=== PATIENT | female | born 1960 | race Caucasian/White ===

== ENCOUNTER 2021-03-21 15:47 | Inpatient (IN) | payer OTHER ==
[2021-03-21 16:06] VITALS: BMI 32.4
[2021-03-21] MEDS ORDERED: ACETAMINOPHEN 1000 MG/100 ML BAG IVPB ONE (16:49)
[2021-03-21] MEDS ORDERED: ACETAMINOPHEN INJECTION 100 ML IVPB ONE (17:15)
[2021-03-21] MEDS ORDERED: LACTATED RINGERS SOLUTION 1000 ML INFUS.BAG IV ONE (17:18)
[2021-03-21] MEDS ORDERED: AZITHROMYCIN IVPB 500 MG in DEXTROSE 5%-WATER - 250 ML IVPB ONE (17:18)
[2021-03-21] MEDS ORDERED: CEFTRIAXONE 1 GM in DEXTROSE 5%-WATER - 100 ML IVPB ONE (17:18)
[2021-03-21] MEDS ORDERED: AZITHROMYCIN IVPB 500 MG/250 ML BAG IVPB ONE (17:30)
[2021-03-21] MEDS ORDERED: CEFTRIAXONE 1 GM/50 ML BAG ONE (17:30)
[2021-03-21 17:41] LABS: VENOUS BASE EXCESS -0.4 mmol/L (-2-2); VENOUS O2 SATURATION 46.1 % (70-80); VENOUS PCO2 42.1 mmHg (38-52); VENOUS PH 7.386 (7.310-7.410)
[2021-03-21 17:48] LABS: BASO % 0.8 % (0-2.0); HEMATOCRIT 40.7 % (32.4-45.2); HEMOGLOBIN 14.2 GM/dL (10.7-15.3); LYMPH % 8.8 % (8-40); MCH 32.6 pg (25.7-33.7); MEAN CELL VOLUME 93.3 fl (80-96); MONO % 7.7 % (3.8-10.2); NEUT % 82.7 % (42.8-82.8); PLATELET COUNT 382 K/MM3 (134-434); RBC 4.36 M/mm3 (3.60-5.2); RDW 12.2 % (11.6-15.6); WHITE BLOOD COUNT 7.3 K/mm3 (4.0-10.0)
[2021-03-21 17:52] LABS: EPI CELLS >36 /uL (0-25.1); HYALINE CASTS 2 /uL (0-3.1); URINE APPEARANCE CLEAR; URINE BACTERIA 1866 /uL (0-1359); URINE BILIRUBIN 1+ (NEGATIVE); URINE COLOR DK YELLOW; URINE GLUCOSE (UA) NEGATIVE (NEGATIVE); URINE KETONE TRACE (NEGATIVE); URINE LEUK ESTERASE NEGATIVE (NEGATIVE); URINE NITRITE NEGATIVE (NEGATIVE); URINE PROTEIN 3+ (NEGATIVE); URINE WBC 6 /uL (0-25.8)
[2021-03-21 17:55] LABS: INR 1.14 (0.83-1.09)
[2021-03-21 17:58] LABS: ACTIVATED PTT 33.1 SECONDS (25.2-36.5)
[2021-03-21 18:01] LABS: CHLORIDE 103 mmol/L (98-107); SODIUM 137 mmol/L (136-145)
[2021-03-21 18:03] LABS: CALCIUM 8.4 mg/dL (8.5-10.1)
[2021-03-21 18:04] LABS: ALBUMIN 3.2 g/dl (3.4-5.0); ANION GAP 8 MMOL/L (8-16); BLOOD UREA NITROGEN 14.6 mg/dL (7-18); CO2 26 mmol/L (21-32); GLUCOSE,RANDOM 100 mg/dL (74-106); MAGNESIUM 2.3 mg/dL (1.8-2.4)
[2021-03-21 18:07] LABS: CREATININE 0.7 mg/dL (0.55-1.3); SGOT/AST 129 U/L (15-37); SGPT/ALT 104 U/L (13-61)
[2021-03-21 18:08] LABS: BILIRUBIN,TOTAL 0.7 mg/dL (0.2-1)
[2021-03-21 18:09] LABS: TOT PROT 7.6 g/dl (6.4-8.2)
[2021-03-21 18:10] LABS: ALK PHOS 142 U/L (45-117)
[2021-03-21 18:12] LABS: N-TERMINAL BNP 38.6 pg/ml (5-125)
[2021-03-21] MEDS ORDERED: DEXAMETHASONE SOD PHOSPHATE 4 MG/1 ML VIAL IVPUSH ONE (19:40)
[2021-03-21] MEDS ORDERED: DEXAMETHASONE SOD PHOSPHATE 10 MG/1 ML VIAL ONE (19:51)
[2021-03-21 20:39] LABS: LDH 647 U/L (84-246)
[2021-03-21 20:43] LABS: ERYTHROCYTE SEDIMENTATION RATE 67 mm/hr (0-30)
[2021-03-21] MEDS: ASCORBIC ACID 500 MG TABLET (FP) PO SCH (22:47)
[2021-03-21] MEDS: ZINC SULFATE 220 MG CAPSULE (FP) PO SCH (22:47)
[2021-03-22 06:38] LABS: BASO % 0.5 % (0-2.0); HEMOGLOBIN 13.9 GM/dL (10.7-15.3); LYMPH % 7.6 % (8-40); MCHC 35.5 g/dl (32.0-36.0); MEAN CELL VOLUME 93.1 fl (80-96); MEAN PLT VOLUME 8.9 fl (7.5-11.1); MONO % 4.5 % (3.8-10.2); NEUT % 87.4 % (42.8-82.8); PLATELET COUNT 369 K/MM3 (134-434); RBC 4.19 M/mm3 (3.60-5.2); RDW 12.4 % (11.6-15.6); WHITE BLOOD COUNT 5.5 K/mm3 (4.0-10.0)
[2021-03-22 06:57] LABS: ALBUMIN 2.6 g/dl (3.4-5.0); MAGNESIUM 2.3 mg/dL (1.8-2.4)
[2021-03-22 06:58] LABS: CALCIUM 8.4 mg/dL (8.5-10.1)
[2021-03-22 06:59] LABS: BLOOD UREA NITROGEN 11.8 mg/dL (7-18)
[2021-03-22 07:01] LABS: CREATININE 0.7 mg/dL (0.55-1.3)
[2021-03-22 07:02] LABS: PHOSPHOROUS 4.4 mg/dL (2.5-4.9); TOT PROT 6.6 g/dl (6.4-8.2)
[2021-03-22 07:03] LABS: BILIRUBIN,TOTAL 0.5 mg/dL (0.2-1)
[2021-03-22] MEDS: DEXAMETHASONE SOD PHOSPHATE 4 MG/1 ML VIAL IVPUSH SCH (09:29)
[2021-03-22] MEDS: ZINC SULFATE 220 MG CAPSULE (FP) PO SCH ×2 (09:29→22:08)
[2021-03-22] MEDS: FAMOTIDINE 20 MG TABLET PO SCH (09:29)
[2021-03-22] MEDS: CHOLECALCIFEROL (VIT D3) 1,000 UNIT (25 MCG) TABLET PO SCH (09:29)
[2021-03-22] MEDS: ASCORBIC ACID 500 MG TABLET (FP) PO SCH (09:29)
[2021-03-22] MEDS ORDERED: ENOXAPARIN NA (PORCINE) 40 MG/0.4 ML DISP.SYRIN SQ SCH (10:00)
[2021-03-22] MEDS ORDERED: FLU VACCINE (FLULAVAL) PF 60 MCG/0.5 ML SYRINGE 2020-2021 IM ONE (10:00)
[2021-03-22 10:42] LABS: ANISOCYTOSIS 1+; MACROCYTOSIS 0; PLATELET ESTIMATE NORMAL
[2021-03-22] MEDS ORDERED: DEXTROSE 5%-WATER 100 ML IVPB ONE ×2 (10:44→16:56)
[2021-03-22] MEDS ORDERED: CEFEPIME HCL 1 GM VIAL (RESTRICTED TO ID) ONE ×2 (10:44→16:56)
[2021-03-22] MEDS: CEFEPIME 1 GM in DEXTROSE 5%-WATER 1 GM/100 ML BAG IVPB SCH ×2 (10:47→18:25)
[2021-03-22] MEDS ORDERED: ENOXAPARIN NA (PORCINE) 80 MG/0.8 ML DISP.SYRIN SQ SCH (14:00)
[2021-03-22] MEDS ORDERED: REMDESIVIR 200 MG in SODIUM CHLORIDE 250 ML IVPB ONE (15:00)
[2021-03-22] MEDS: ENOXAPARIN NA (PORCINE) 80 MG/0.8 ML DISP.SYRIN SQ SCH (22:07)
[2021-03-23] MEDS ORDERED: CEFEPIME HCL 1 GM VIAL (RESTRICTED TO ID) ONE ×3 (00:05→16:40)
[2021-03-23] MEDS ORDERED: DEXTROSE 5%-WATER 100 ML IVPB ONE ×3 (00:06→16:41)
[2021-03-23] MEDS: CEFEPIME 1 GM in DEXTROSE 5%-WATER 1 GM/100 ML BAG IVPB SCH ×3 (01:03→17:08)
[2021-03-23 04:50] LABS: SARS-CoV-2 NAA Detected (Not Detected)
[2021-03-23 07:08] LABS: BASO % 0.3 % (0-2.0); HEMATOCRIT 38.2 % (32.4-45.2); HEMOGLOBIN 13.1 GM/dL (10.7-15.3); LYMPH % 4.7 % (8-40); MCH 31.9 pg (25.7-33.7); MCHC 34.3 g/dl (32.0-36.0); MEAN CELL VOLUME 93.1 fl (80-96); MEAN PLT VOLUME 8.7 fl (7.5-11.1); MONO % 7.3 % (3.8-10.2); NEUT % 87.7 % (42.8-82.8); PLATELET COUNT 447 K/MM3 (134-434); RBC 4.11 M/mm3 (3.60-5.2); RDW 12.2 % (11.6-15.6); WHITE BLOOD COUNT 12.6 K/mm3 (4.0-10.0)
[2021-03-23 07:30] LABS: ALBUMIN 2.4 g/dl (3.4-5.0); BLOOD UREA NITROGEN 17.3 mg/dL (7-18)
[2021-03-23 07:31] LABS: MAGNESIUM 2.3 mg/dL (1.8-2.4)
[2021-03-23 07:33] LABS: CREATININE 0.6 mg/dL (0.55-1.3)
[2021-03-23 07:34] LABS: BILIRUBIN,TOTAL 0.5 mg/dL (0.2-1); TOT PROT 6.2 g/dl (6.4-8.2)
[2021-03-23] MEDS ORDERED: TOCILIZUMAB (ACTEMRA) 200 MG/10 ML VIAL IVPB ONE (08:33)
[2021-03-23] MEDS: CHOLECALCIFEROL (VIT D3) 1,000 UNIT (25 MCG) TABLET PO SCH (09:09)
[2021-03-23] MEDS: DEXAMETHASONE SOD PHOSPHATE 4 MG/1 ML VIAL IVPUSH SCH (09:09)
[2021-03-23] MEDS: ASCORBIC ACID 500 MG TABLET (FP) PO SCH (09:10)
[2021-03-23] MEDS: FAMOTIDINE 20 MG TABLET PO SCH (09:10)
[2021-03-23] MEDS: ZINC SULFATE 220 MG CAPSULE (FP) PO SCH ×2 (09:10→21:05)
[2021-03-23] MEDS: ENOXAPARIN NA (PORCINE) 80 MG/0.8 ML DISP.SYRIN SQ SCH ×2 (09:10→21:05)
[2021-03-23] MEDS: amLODIPine BESYLATE 5 MG TABLET (FP) PO SCH (09:10)
[2021-03-23] MEDS ORDERED: TOCILIZUMAB 700 MG in SODIUM CHLORIDE 65 ML IVPB ONE (11:00)
[2021-03-23] MEDS: REMDESIVIR 100 MG in SODIUM CHLORIDE 250 ML IVPB SCH (15:04)
[2021-03-23] MEDS: ALBUTEROL SO4 HFA INHALER IH SCH ×2 (15:04→20:37)
[2021-03-23] MEDS: BUDESONIDE/FORMETEROL FUMARATE 160/4.5 mcg INHALER IH SCH (21:06)
[2021-03-24] MEDS ORDERED: CEFEPIME HCL 1 GM VIAL (RESTRICTED TO ID) ONE ×3 (01:09→16:49)
[2021-03-24] MEDS ORDERED: DEXTROSE 5%-WATER 100 ML IVPB ONE ×3 (01:09→16:49)
[2021-03-24] MEDS: CEFEPIME 1 GM in DEXTROSE 5%-WATER 1 GM/100 ML BAG IVPB SCH ×3 (01:17→17:01)
[2021-03-24] MEDS ORDERED: guaiFENesin 200 MG/10 ML 10 ML UNIT-DOSE CUPS PO PRN (02:10)
[2021-03-24] MEDS: ALBUTEROL SO4 HFA INHALER IH SCH ×4 (08:14→20:30)
[2021-03-24 08:37] LABS: BASO % 0.3 % (0-2.0); HEMATOCRIT 37.5 % (32.4-45.2); LYMPH % 7.6 % (8-40); MCH 32.2 pg (25.7-33.7); MCHC 34.7 g/dl (32.0-36.0); MEAN CELL VOLUME 92.8 fl (80-96); MEAN PLT VOLUME 8.2 fl (7.5-11.1); MONO % 6.3 % (3.8-10.2); NEUT % 85.8 % (42.8-82.8); PLATELET COUNT 517 K/MM3 (134-434); RBC 4.04 M/mm3 (3.60-5.2); RDW 12.3 % (11.6-15.6); WHITE BLOOD COUNT 11.2 K/mm3 (4.0-10.0)
[2021-03-24 09:07] LABS: ALBUMIN 2.5 g/dl (3.4-5.0); BLOOD UREA NITROGEN 23.9 mg/dL (7-18); MAGNESIUM 2.4 mg/dL (1.8-2.4)
[2021-03-24 09:09] LABS: CREATININE 0.6 mg/dL (0.55-1.3)
[2021-03-24 09:11] LABS: BILIRUBIN,TOTAL 0.4 mg/dL (0.2-1); TOT PROT 6.1 g/dl (6.4-8.2)
[2021-03-24] MEDS: CHOLECALCIFEROL (VIT D3) 1,000 UNIT (25 MCG) TABLET PO SCH (09:14)
[2021-03-24] MEDS: amLODIPine BESYLATE 5 MG TABLET (FP) PO SCH (09:14)
[2021-03-24] MEDS: ENOXAPARIN NA (PORCINE) 80 MG/0.8 ML DISP.SYRIN SQ SCH ×2 (09:14→21:55)
[2021-03-24] MEDS: DEXAMETHASONE SOD PHOSPHATE 4 MG/1 ML VIAL IVPUSH SCH (09:14)
[2021-03-24] MEDS: ASCORBIC ACID 500 MG TABLET (FP) PO SCH (09:14)
[2021-03-24] MEDS: ZINC SULFATE 220 MG CAPSULE (FP) PO SCH ×2 (09:14→21:55)
[2021-03-24] MEDS: FAMOTIDINE 20 MG TABLET PO SCH (09:15)
[2021-03-24] MEDS: BUDESONIDE/FORMETEROL FUMARATE 160/4.5 mcg INHALER IH SCH ×2 (09:15→21:58)
[2021-03-24] MEDS ORDERED: ACETAMINOPHEN 1000 MG/100 ML BAG IVPB PRN (12:14)
[2021-03-24] MEDS: REMDESIVIR 100 MG in SODIUM CHLORIDE 250 ML IVPB SCH (14:52)
[2021-03-25 06:48] LABS: BASO % 0.2 % (0-2.0); EOS % 0.1 % (0-4.5); HEMATOCRIT 39.9 % (32.4-45.2); HEMOGLOBIN 13.9 GM/dL (10.7-15.3); MCH 32.7 pg (25.7-33.7); MCHC 34.9 g/dl (32.0-36.0); MEAN CELL VOLUME 93.7 fl (80-96); MEAN PLT VOLUME 8.5 fl (7.5-11.1); MONO % 5.8 % (3.8-10.2); NEUT % 86.9 % (42.8-82.8); PLATELET COUNT 541 K/MM3 (134-434); RBC 4.26 M/mm3 (3.60-5.2); RDW 12.2 % (11.6-15.6); WHITE BLOOD COUNT 10.5 K/mm3 (4.0-10.0)
[2021-03-25 07:32] LABS: BLOOD UREA NITROGEN 21.8 mg/dL (7-18)
[2021-03-25 07:37] LABS: CALCIUM 7.8 mg/dL (8.5-10.1)
[2021-03-25 07:38] LABS: ALBUMIN 2.6 g/dl (3.4-5.0); MAGNESIUM 2.4 mg/dL (1.8-2.4)
[2021-03-25 07:39] LABS: CREATININE 0.7 mg/dL (0.55-1.3)
[2021-03-25 07:40] LABS: BILIRUBIN,TOTAL 0.4 mg/dL (0.2-1)
[2021-03-25 07:41] LABS: TOT PROT 6.1 g/dl (6.4-8.2)
[2021-03-25] MEDS: ALBUTEROL SO4 HFA INHALER IH SCH ×4 (08:20→21:37)
[2021-03-25 08:56] LABS: ANISOCYTOSIS 0; MACROCYTOSIS 0; PLATELET ESTIMATE INCREASED
[2021-03-25] MEDS: ZINC SULFATE 220 MG CAPSULE (FP) PO SCH ×2 (09:29→21:38)
[2021-03-25] MEDS: FAMOTIDINE 20 MG TABLET PO SCH (09:29)
[2021-03-25] MEDS: ENOXAPARIN NA (PORCINE) 80 MG/0.8 ML DISP.SYRIN SQ SCH ×2 (09:29→21:38)
[2021-03-25] MEDS: amLODIPine BESYLATE 5 MG TABLET (FP) PO SCH (09:29)
[2021-03-25] MEDS: ASCORBIC ACID 500 MG TABLET (FP) PO SCH (09:29)
[2021-03-25] MEDS: CHOLECALCIFEROL (VIT D3) 1,000 UNIT (25 MCG) TABLET PO SCH (09:29)
[2021-03-25] MEDS: BUDESONIDE/FORMETEROL FUMARATE 160/4.5 mcg INHALER IH SCH ×2 (09:30→21:38)
[2021-03-25] MEDS: DEXAMETHASONE SOD PHOSPHATE 4 MG/1 ML VIAL IVPUSH SCH (09:30)
[2021-03-25] MEDS: REMDESIVIR 100 MG in SODIUM CHLORIDE 250 ML IVPB SCH (15:30)
[2021-03-25 16:12] LABS: HEP B CORE AB, TOT Negative (Negative)
[2021-03-26 06:58] LABS: ALBUMIN 2.4 g/dl (3.4-5.0); BLOOD UREA NITROGEN 18.6 mg/dL (7-18); MAGNESIUM 2.1 mg/dL (1.8-2.4)
[2021-03-26 07:01] LABS: CREATININE 0.6 mg/dL (0.55-1.3)
[2021-03-26 07:02] LABS: BASO % 0.4 % (0-2.0); BILIRUBIN,TOTAL 0.2 mg/dL (0.2-1); EOS % 0.3 % (0-4.5); HEMATOCRIT 39.8 % (32.4-45.2); HEMOGLOBIN 13.8 GM/dL (10.7-15.3); LYMPH % 7.7 % (8-40); MCH 32.4 pg (25.7-33.7); MCHC 34.6 g/dl (32.0-36.0); MEAN CELL VOLUME 93.7 fl (80-96); MEAN PLT VOLUME 8.7 fl (7.5-11.1); MONO % 5.4 % (3.8-10.2); NEUT % 86.2 % (42.8-82.8); PLATELET COUNT 550 K/MM3 (134-434); RBC 4.25 M/mm3 (3.60-5.2); RDW 12.2 % (11.6-15.6); TOT PROT 5.6 g/dl (6.4-8.2); WHITE BLOOD COUNT 11.5 K/mm3 (4.0-10.0)
[2021-03-26] MEDS: ZINC SULFATE 220 MG CAPSULE (FP) PO SCH ×2 (09:03→21:42)
[2021-03-26] MEDS: ASCORBIC ACID 500 MG TABLET (FP) PO SCH (09:03)
[2021-03-26] MEDS: amLODIPine BESYLATE 5 MG TABLET (FP) PO SCH (09:03)
[2021-03-26] MEDS: ENOXAPARIN NA (PORCINE) 80 MG/0.8 ML DISP.SYRIN SQ SCH ×2 (09:03→21:42)
[2021-03-26] MEDS: CHOLECALCIFEROL (VIT D3) 1,000 UNIT (25 MCG) TABLET PO SCH (09:03)
[2021-03-26] MEDS: FAMOTIDINE 20 MG TABLET PO SCH (09:03)
[2021-03-26] MEDS: DEXAMETHASONE SOD PHOSPHATE 4 MG/1 ML VIAL IVPUSH SCH (09:03)
[2021-03-26] MEDS: ALBUTEROL SO4 HFA INHALER IH SCH ×4 (09:04→21:42)
[2021-03-26] MEDS: BUDESONIDE/FORMETEROL FUMARATE 160/4.5 mcg INHALER IH SCH ×2 (09:04→21:42)
[2021-03-26] MEDS: REMDESIVIR 100 MG in SODIUM CHLORIDE 250 ML IVPB SCH (14:26)
[2021-03-26] MEDS ORDERED: ACETAMINOPHEN 500 MG TABLET (FP) PO PRN (21:17)
[2021-03-26] MEDS ORDERED: MAG HYDROX/AL HYDROX/SIMETH -MYLANTA- ORAL SUSPENSION PO ONE (22:09)
[2021-03-26] MEDS ORDERED: PT OWN MED DRAWER 7, Y5N ONE (22:17)
[2021-03-27 06:47] LABS: BASO % 0.4 % (0-2.0); EOS % 0.5 % (0-4.5); LYMPH % 9.4 % (8-40); MCH 32.4 pg (25.7-33.7); MCHC 35.1 g/dl (32.0-36.0); MEAN CELL VOLUME 92.4 fl (80-96); MEAN PLT VOLUME 8.3 fl (7.5-11.1); MONO % 6.2 % (3.8-10.2); NEUT % 83.5 % (42.8-82.8); PLATELET COUNT 603 K/MM3 (134-434); RBC 4.33 M/mm3 (3.60-5.2); RDW 12.2 % (11.6-15.6); WHITE BLOOD COUNT 12.1 K/mm3 (4.0-10.0)
[2021-03-27 07:36] LABS: BLOOD UREA NITROGEN 16.4 mg/dL (7-18)
[2021-03-27 07:37] LABS: ALBUMIN 2.6 g/dl (3.4-5.0); MAGNESIUM 2.3 mg/dL (1.8-2.4)
[2021-03-27 07:38] LABS: CREATININE 0.6 mg/dL (0.55-1.3)
[2021-03-27 07:40] LABS: BILIRUBIN,TOTAL 0.4 mg/dL (0.2-1); TOT PROT 5.9 g/dl (6.4-8.2)
[2021-03-27] MEDS: ALBUTEROL SO4 HFA INHALER IH SCH ×4 (08:56→21:50)
[2021-03-27] MEDS: ZINC SULFATE 220 MG CAPSULE (FP) PO SCH ×2 (09:55→21:50)
[2021-03-27] MEDS: ENOXAPARIN NA (PORCINE) 80 MG/0.8 ML DISP.SYRIN SQ SCH ×2 (09:55→21:50)
[2021-03-27] MEDS: ASCORBIC ACID 500 MG TABLET (FP) PO SCH (09:56)
[2021-03-27] MEDS: DEXAMETHASONE SOD PHOSPHATE 4 MG/1 ML VIAL IVPUSH SCH (09:56)
[2021-03-27] MEDS: BUDESONIDE/FORMETEROL FUMARATE 160/4.5 mcg INHALER IH SCH ×2 (09:56→21:50)
[2021-03-27] MEDS: CHOLECALCIFEROL (VIT D3) 1,000 UNIT (25 MCG) TABLET PO SCH (09:56)
[2021-03-27] MEDS: FAMOTIDINE 20 MG TABLET PO SCH (09:56)
[2021-03-27] MEDS: amLODIPine BESYLATE 5 MG TABLET (FP) PO SCH (09:56)
[2021-03-27] MEDS: MAG HYDROX/AL HYDROX/SIMETH 30 ML UNIT-DOSE CUP PO PRN (10:32)
[2021-03-27 11:48] LABS: ANISOCYTOSIS 0; MACROCYTOSIS 0; PLATELET ESTIMATE INCREASED
[2021-03-28 07:16] LABS: BASO % 0.6 % (0-2.0); EOS % 1.2 % (0-4.5); HEMATOCRIT 40.6 % (32.4-45.2); HEMOGLOBIN 13.9 GM/dL (10.7-15.3); LYMPH % 6.6 % (8-40); MCH 32.1 pg (25.7-33.7); MCHC 34.4 g/dl (32.0-36.0); MEAN CELL VOLUME 93.5 fl (80-96); MEAN PLT VOLUME 8.6 fl (7.5-11.1); MONO % 5.9 % (3.8-10.2); NEUT % 85.7 % (42.8-82.8); PLATELET COUNT 593 K/MM3 (134-434); RBC 4.34 M/mm3 (3.60-5.2); RDW 12.3 % (11.6-15.6)
[2021-03-28 07:39] LABS: CALCIUM 8.1 mg/dL (8.5-10.1)
[2021-03-28 07:40] LABS: ALBUMIN 2.8 g/dl (3.4-5.0); BLOOD UREA NITROGEN 23.2 mg/dL (7-18); MAGNESIUM 2.4 mg/dL (1.8-2.4)
[2021-03-28 07:43] LABS: CREATININE 0.7 mg/dL (0.55-1.3)
[2021-03-28 07:44] LABS: BILIRUBIN,TOTAL 0.4 mg/dL (0.2-1)
[2021-03-28] MEDS: ALBUTEROL SO4 HFA INHALER IH SCH ×4 (08:29→22:02)
[2021-03-28] MEDS: DEXAMETHASONE SOD PHOSPHATE 4 MG/1 ML VIAL IVPUSH SCH (09:29)
[2021-03-28] MEDS: ZINC SULFATE 220 MG CAPSULE (FP) PO SCH ×2 (09:29→22:03)
[2021-03-28] MEDS: FAMOTIDINE 20 MG TABLET PO SCH (09:29)
[2021-03-28] MEDS: ASCORBIC ACID 500 MG TABLET (FP) PO SCH (09:29)
[2021-03-28] MEDS: amLODIPine BESYLATE 5 MG TABLET (FP) PO SCH (09:29)
[2021-03-28] MEDS: CHOLECALCIFEROL (VIT D3) 1,000 UNIT (25 MCG) TABLET PO SCH (09:29)
[2021-03-28] MEDS: BUDESONIDE/FORMETEROL FUMARATE 160/4.5 mcg INHALER IH SCH ×2 (09:30→22:03)
[2021-03-28] MEDS: ENOXAPARIN NA (PORCINE) 80 MG/0.8 ML DISP.SYRIN SQ SCH ×2 (09:30→22:02)
[2021-03-29 06:05] LABS: BASO % 0.2 % (0-2.0); EOS % 1.8 % (0-4.5); HEMATOCRIT 41.1 % (32.4-45.2); HEMOGLOBIN 14.2 GM/dL (10.7-15.3); LYMPH % 6.3 % (8-40); MCH 32.2 pg (25.7-33.7); MCHC 34.5 g/dl (32.0-36.0); MEAN CELL VOLUME 93.3 fl (80-96); MEAN PLT VOLUME 8.5 fl (7.5-11.1); MONO % 7.2 % (3.8-10.2); NEUT % 84.5 % (42.8-82.8); PLATELET COUNT 544 K/MM3 (134-434); RDW 12.4 % (11.6-15.6); WHITE BLOOD COUNT 14.5 K/mm3 (4.0-10.0)
[2021-03-29 06:41] LABS: ALBUMIN 2.9 g/dl (3.4-5.0); CALCIUM 8.5 mg/dL (8.5-10.1)
[2021-03-29 06:42] LABS: BLOOD UREA NITROGEN 21.5 mg/dL (7-18); MAGNESIUM 2.3 mg/dL (1.8-2.4)
[2021-03-29 06:45] LABS: CREATININE 0.6 mg/dL (0.55-1.3)
[2021-03-29 06:46] LABS: BILIRUBIN,TOTAL 0.6 mg/dL (0.2-1); TOT PROT 6.2 g/dl (6.4-8.2)
[2021-03-29] MEDS: ALBUTEROL SO4 HFA INHALER IH SCH ×4 (08:26→20:14)
[2021-03-29 08:42] LABS: ANISOCYTOSIS 1+; MACROCYTOSIS 0; PLATELET ESTIMATE INCREASED
[2021-03-29] MEDS: ENOXAPARIN NA (PORCINE) 80 MG/0.8 ML DISP.SYRIN SQ SCH ×2 (09:50→21:05)
[2021-03-29] MEDS: ASCORBIC ACID 500 MG TABLET (FP) PO SCH (09:51)
[2021-03-29] MEDS: FAMOTIDINE 20 MG TABLET PO SCH (09:51)
[2021-03-29] MEDS: amLODIPine BESYLATE 5 MG TABLET (FP) PO SCH (09:51)
[2021-03-29] MEDS: ZINC SULFATE 220 MG CAPSULE (FP) PO SCH ×2 (09:51→21:05)
[2021-03-29] MEDS: DEXAMETHASONE SOD PHOSPHATE 4 MG/1 ML VIAL IVPUSH SCH (09:51)
[2021-03-29] MEDS: CHOLECALCIFEROL (VIT D3) 1,000 UNIT (25 MCG) TABLET PO SCH (09:51)
[2021-03-29] MEDS: BUDESONIDE/FORMETEROL FUMARATE 160/4.5 mcg INHALER IH SCH ×2 (09:52→21:05)
[2021-03-29] MEDS ORDERED: PT OWN MED DRAWER 7, Y5N ONE (10:10)
[2021-03-30 06:55] LABS: BASO % 0.1 % (0-2.0); EOS % 0.1 % (0-4.5); HEMATOCRIT 40.3 % (32.4-45.2); HEMOGLOBIN 13.8 GM/dL (10.7-15.3); MCH 32.1 pg (25.7-33.7); MCHC 34.2 g/dl (32.0-36.0); MEAN CELL VOLUME 93.8 fl (80-96); MEAN PLT VOLUME 8.6 fl (7.5-11.1); MONO % 7.2 % (3.8-10.2); NEUT % 83.6 % (42.8-82.8); PLATELET COUNT 547 K/MM3 (134-434); RDW 12.6 % (11.6-15.6); WHITE BLOOD COUNT 12.2 K/mm3 (4.0-10.0)
[2021-03-30 07:17] LABS: CHLORIDE 100 mmol/L (98-107); SODIUM 136 mmol/L (136-145)
[2021-03-30 07:19] LABS: BLOOD UREA NITROGEN 22.7 mg/dL (7-18); CALCIUM 8.5 mg/dL (8.5-10.1)
[2021-03-30 07:20] LABS: ANION GAP 6 MMOL/L (8-16); CO2 30 mmol/L (21-32)
[2021-03-30 07:22] LABS: CREATININE 0.5 mg/dL (0.55-1.3); MAGNESIUM 2.3 mg/dL (1.8-2.4)
[2021-03-30 07:23] LABS: GLUCOSE,RANDOM 106 mg/dL (74-106); SGOT/AST 14 U/L (15-37); SGPT/ALT 56 U/L (13-61)
[2021-03-30 07:24] LABS: LDH 251 U/L (84-246)
[2021-03-30 07:25] LABS: ALK PHOS 119 U/L (45-117)
[2021-03-30 07:27] LABS: BILIRUBIN,TOTAL 0.4 mg/dL (0.2-1)
[2021-03-30] MEDS: ALBUTEROL SO4 HFA INHALER IH SCH ×4 (07:36→21:44)
[2021-03-30] MEDS: amLODIPine BESYLATE 5 MG TABLET (FP) PO SCH (09:12)
[2021-03-30] MEDS: ENOXAPARIN NA (PORCINE) 80 MG/0.8 ML DISP.SYRIN SQ SCH ×2 (09:12→21:44)
[2021-03-30] MEDS: FAMOTIDINE 20 MG TABLET PO SCH (09:12)
[2021-03-30] MEDS: DEXAMETHASONE SOD PHOSPHATE 4 MG/1 ML VIAL IVPUSH SCH (09:12)
[2021-03-30] MEDS: CHOLECALCIFEROL (VIT D3) 1,000 UNIT (25 MCG) TABLET PO SCH (09:13)
[2021-03-30] MEDS: ASCORBIC ACID 500 MG TABLET (FP) PO SCH (09:13)
[2021-03-30] MEDS: ZINC SULFATE 220 MG CAPSULE (FP) PO SCH ×2 (09:13→21:44)
[2021-03-30] MEDS: BUDESONIDE/FORMETEROL FUMARATE 160/4.5 mcg INHALER IH SCH ×2 (09:13→21:44)
[2021-03-30] MEDS: MAG HYDROX/AL HYDROX/SIMETH 30 ML UNIT-DOSE CUP PO PRN (21:51)
[2021-03-31 06:30] LABS: BASO % 0.3 % (0-2.0); EOS % 0.2 % (0-4.5); HEMOGLOBIN 13.8 GM/dL (10.7-15.3); LYMPH % 9.2 % (8-40); MCH 32.3 pg (25.7-33.7); MCHC 34.6 g/dl (32.0-36.0); MEAN CELL VOLUME 93.3 fl (80-96); MEAN PLT VOLUME 8.5 fl (7.5-11.1); MONO % 7.9 % (3.8-10.2); NEUT % 82.4 % (42.8-82.8); PLATELET COUNT 534 K/MM3 (134-434); RBC 4.29 M/mm3 (3.60-5.2); RDW 12.7 % (11.6-15.6); WHITE BLOOD COUNT 11.5 K/mm3 (4.0-10.0)
[2021-03-31] MEDS ORDERED: PT OWN MED DRAWER 7, Y5N ONE (06:51)
[2021-03-31 07:02] LABS: CHLORIDE 101 mmol/L (98-107); SODIUM 134 mmol/L (136-145)
[2021-03-31 07:04] LABS: ALBUMIN 2.9 g/dl (3.4-5.0); ANION GAP 5 MMOL/L (8-16); BLOOD UREA NITROGEN 25.8 mg/dL (7-18); CALCIUM 8.7 mg/dL (8.5-10.1); CO2 28 mmol/L (21-32); MAGNESIUM 2.3 mg/dL (1.8-2.4)
[2021-03-31 07:05] LABS: GLUCOSE,RANDOM 109 mg/dL (74-106)
[2021-03-31 07:06] LABS: SGPT/ALT 45 U/L (13-61)
[2021-03-31 07:08] LABS: CREATININE 0.6 mg/dL (0.55-1.3); SGOT/AST 10 U/L (15-37)
[2021-03-31 07:09] LABS: BILIRUBIN,TOTAL 0.5 mg/dL (0.2-1)
[2021-03-31 07:10] LABS: ALK PHOS 109 U/L (45-117)
[2021-03-31 07:13] LABS: LDH 233 U/L (84-246)
[2021-03-31] MEDS: DEXAMETHASONE SOD PHOSPHATE 4 MG/1 ML VIAL IVPUSH SCH (09:40)
[2021-03-31] MEDS: ENOXAPARIN NA (PORCINE) 80 MG/0.8 ML DISP.SYRIN SQ SCH ×2 (09:40→21:54)
[2021-03-31] MEDS: ZINC SULFATE 220 MG CAPSULE (FP) PO SCH ×2 (09:41→21:54)
[2021-03-31] MEDS: ASCORBIC ACID 500 MG TABLET (FP) PO SCH (09:41)
[2021-03-31] MEDS: amLODIPine BESYLATE 5 MG TABLET (FP) PO SCH (09:41)
[2021-03-31] MEDS: CHOLECALCIFEROL (VIT D3) 1,000 UNIT (25 MCG) TABLET PO SCH (09:41)
[2021-03-31] MEDS: FAMOTIDINE 20 MG TABLET PO SCH (09:41)
[2021-03-31] MEDS: ALBUTEROL SO4 HFA INHALER IH SCH ×4 (09:41→21:05)
[2021-03-31] MEDS: BUDESONIDE/FORMETEROL FUMARATE 160/4.5 mcg INHALER IH SCH ×2 (09:41→21:54)
[2021-04-01] MEDS: amLODIPine BESYLATE 5 MG TABLET (FP) PO SCH ×2 (09:03→09:59)
[2021-04-01] MEDS: ZINC SULFATE 220 MG CAPSULE (FP) PO SCH (09:03)
[2021-04-01] MEDS: CHOLECALCIFEROL (VIT D3) 1,000 UNIT (25 MCG) TABLET PO SCH (09:03)
[2021-04-01] MEDS: ALBUTEROL SO4 HFA INHALER IH SCH ×3 (09:03→17:21)
[2021-04-01] MEDS: DEXAMETHASONE SOD PHOSPHATE 4 MG/1 ML VIAL IVPUSH SCH (09:03)
[2021-04-01] MEDS: ENOXAPARIN NA (PORCINE) 80 MG/0.8 ML DISP.SYRIN SQ SCH (09:03)
[2021-04-01] MEDS: FAMOTIDINE 20 MG TABLET PO SCH (09:03)
[2021-04-01] MEDS: ASCORBIC ACID 500 MG TABLET (FP) PO SCH (09:03)
[2021-04-01] MEDS: BUDESONIDE/FORMETEROL FUMARATE 160/4.5 mcg INHALER IH SCH (09:04)
[2021-04-01 09:59] VITALS: BP 102/49; TEMP 98
[2021-04-01 13:51] LABS: HEMATOCRIT 41.5 % (32.4-45.2); HEMOGLOBIN 14.3 GM/dL (10.7-15.3); LYMPH % 3.6 % (8-40); MCH 32.3 pg (25.7-33.7); MCHC 34.4 g/dl (32.0-36.0); MEAN CELL VOLUME 93.8 fl (80-96); MEAN PLT VOLUME 8.6 fl (7.5-11.1); NEUT % 92.4 % (42.8-82.8); PLATELET COUNT 509 K/MM3 (134-434); RBC 4.43 M/mm3 (3.60-5.2); RDW 13.1 % (11.6-15.6)
[2021-04-01 14:24] LABS: CHLORIDE 98 mmol/L (98-107); SODIUM 133 mmol/L (136-145)
[2021-04-01 14:27] LABS: ALBUMIN 3.2 g/dl (3.4-5.0); ANION GAP 8 MMOL/L (8-16); BLOOD UREA NITROGEN 22.6 mg/dL (7-18); CALCIUM 8.6 mg/dL (8.5-10.1); CO2 26 mmol/L (21-32); GLUCOSE,RANDOM 257 mg/dL (74-106); MAGNESIUM 2.2 mg/dL (1.8-2.4)
[2021-04-01 14:30] LABS: SGPT/ALT 48 U/L (13-61)
[2021-04-01 14:31] LABS: BILIRUBIN,TOTAL 0.4 mg/dL (0.2-1); CREATININE 0.8 mg/dL (0.55-1.3); LDH 238 U/L (84-246); SGOT/AST 16 U/L (15-37); TOT PROT 6.4 g/dl (6.4-8.2)
[2021-04-01 14:33] LABS: ALK PHOS 118 U/L (45-117)
[2021-04-01 14:40] LABS: PLATELET ESTIMATE SIGNIFICANT INCREASE
[2021-04-01 15:36] VITALS: PULSE 92
== END 2021-04-01 20:26 | disposition home or self-care (01) | DRG 137 ==
LOC: JER 15:47 → JERBED 19:54 → J4S 22:28
PROVIDERS: ADMIT Internal Medicine; ATTEND Nurse Practitioner Family
PROC: XW033E5 Introduction of Remdesivir Anti-infective into Peripheral Vein, Percutaneous Approach, New Technology Group 5 (ICD-10-PCS; 2021-03-22)
PROC: XW033H5 Introduction of Tocilizumab into Peripheral Vein, Percutaneous Approach, New Technology Group 5 (ICD-10-PCS; principal; 2021-03-23)
DX: U07.1 COVID-19 (principal); J12.82 Pneumonia due to coronavirus disease 2019; J80 Acute respiratory distress syndrome; R94.5 Abnormal results of liver function studies; I10 Essential (primary) hypertension; E78.5 Hyperlipidemia, unspecified; E66.9 Obesity, unspecified; Z68.32 Body mass index [BMI] 32.0-32.9, adult; E83.51 Hypocalcemia; E88.09 Other disorders of plasma-protein metabolism, not elsewhere classified; R80.9 Proteinuria, unspecified; R74.01 Elevation of levels of liver transaminase levels; R91.8 Other nonspecific abnormal finding of lung field
CPT/HCPCS: 36415; 71045-TC-FY; 71275-TC; 76705-TC; 80053; 80061; 81003; 82550; 82728; 82803; 83036; 83605; 83615; 83721; 83735; 83880; 84100; 84484; 85025; 85379; 85610; 85651; 85730; 86140; 86704; 86706; 86707; 86708; 86709; 86769; 86803; 87040; 87086; 87340; 87804; 93005; 93010; 94010; 94761; 97116-GP; 99285-25; C9399; C9803; J0131; J3262; Q9967; U0003; U0005

== ENCOUNTER 2024-11-11 04:21 | Day surgery (SDC) | payer MEDICARE, OTHER ==
[2024-11-11 10:03] VITALS: BMI 32.9
[2024-11-11 10:07] LABS: BASO % 0.7 % (0-2.0); EOS % 8.3 % (0-4.5); HEMATOCRIT 43.1 % (32.4-45.2); HEMOGLOBIN 14.5 GM/dL (10.7-15.3); LYMPH % 29.9 % (8-40); MCH 31.8 pg (25.7-33.7); MCHC 33.7 g/dl (32.0-36.0); MEAN CELL VOLUME 94.3 fl (80-96); MEAN PLT VOLUME 9.2 fl (7.5-11.1); MONO % 5.8 % (3.8-10.2); NEUT % 55.3 % (42.8-82.8); PLATELET COUNT 261 10^3/uL (134-434); RBC 4.57 M/mm3 (3.60-5.2); RDW 12.5 % (11.6-15.6); WHITE BLOOD COUNT 4.4 K/mm3 (4.0-10.0)
[2024-11-11 10:18] LABS: INR 1.03 (0.83-1.09); PROTHROMBIN TIME (PATIENT) 11.6 SEC (9.7-13.0)
[2024-11-11] MEDS ORDERED: MIDAZOLAM HCL 2 MG/2 ML SINGLE DOSE VIAL ONE (11:36)
[2024-11-11] MEDS ORDERED: FENTANYL CITRATE/PF 50 MCG/ML VIAL ONE (11:37)
[2024-11-11] MEDS: SODIUM CHLORIDE 250 ML IV SCH (11:45)
[2024-11-11] MEDS: MIDAZOLAM HCL 2 MG/2 ML SINGLE DOSE VIAL IVPUSH ONE (11:48)
[2024-11-11] MEDS: FENTANYL CITRATE/PF 50 MCG/ML VIAL IVPUSH ONE (11:48)
[2024-11-11] MEDS: ACETAMINOPHEN 1000 MG/100 ML BAG IVPB ONE (13:55)
[2024-11-11] MEDS ORDERED: ACETAMINOPHEN 500 MG TABLET (FP) ONE (13:59)
[2024-11-11 14:19] VITALS: BP 110/57; PULSE 70; RESP 18; TEMP 97.3
== END 2024-11-11 14:19 | disposition home or self-care (01) ==
LOC: JRADIR 04:21
PROVIDERS: ATTEND Internal Medicine Hematology & Oncology
PROC: 0JH63WZ Insertion of Totally Implantable Vascular Access Device into Chest Subcutaneous Tissue and Fascia, Percutaneous Approach (ICD-10-PCS; principal; 2024-11-11)
PROC: 02HV33Z Insertion of Infusion Device into Superior Vena Cava, Percutaneous Approach (ICD-10-PCS; 2024-11-11)
PROC: B518ZZA Fluoroscopy of Superior Vena Cava, Guidance (ICD-10-PCS; 2024-11-11)
DX: C50.919 Malignant neoplasm of unspecified site of unspecified female breast (principal)
CPT/HCPCS: 36561; C1788; 36415; 85025; 85610; J0131

== ENCOUNTER 2024-11-19 13:53 | Emergency (ER) | payer MEDICARE, OTHER ==
[2024-11-19 14:07] VITALS: BP 149/88; PULSE 85; RESP 18; TEMP 97.8; BMI 32.9
== END 2024-11-19 15:42 | disposition home or self-care (01) ==
LOC: JERFT 13:53
DX: Z48.00 Encounter for change or removal of nonsurgical wound dressing (principal)
CPT/HCPCS: 99281-25

== ENCOUNTER 2024-11-22 09:40 | Day surgery (SDC) | payer MEDICARE, OTHER ==
[2024-11-22 10:29] LABS: HEMATOCRIT 44.9 % (32.4-45.2); HEMOGLOBIN 14.9 GM/dL (10.7-15.3); MCH 31.1 pg (25.7-33.7); MCHC 33.1 g/dl (32.0-36.0); MEAN CELL VOLUME 93.9 fl (80-96); MEAN PLT VOLUME 9.5 fl (7.5-11.1); PLATELET COUNT 280 10^3/uL (134-434); RBC 4.78 M/mm3 (3.60-5.2); RDW 12.6 % (11.6-15.6); WHITE BLOOD COUNT 6.5 K/mm3 (4.0-10.0)
[2024-11-22 10:39] LABS: CHLORIDE 104 mmol/L (98-107); POTASSIUM 3.9 mmol/L (3.5-5.1); SODIUM 137 mmol/L (136-145)
[2024-11-22 10:44] LABS: ALBUMIN 4.2 g/dl (3.4-5.0); ANION GAP 8 mmol/L (4-13); BLOOD UREA NITROGEN 13.8 mg/dL (7-18); CALCIUM 10.2 mg/dL (8.5-10.1); CO2 26 mmol/L (21-32); GLUCOSE,RANDOM 183 mg/dL (74-106)
[2024-11-22 10:46] LABS: BILIRUBIN,DIRECT 0.1 mg/dL (0.0-0.2); SGOT/AST 15 U/L (15-37); SGPT/ALT 26 U/L (13-61)
[2024-11-22 10:48] LABS: BILIRUBIN,TOTAL 0.5 mg/dL (0.2-1); TOT PROT 7.8 g/dl (6.4-8.2)
[2024-11-22 10:49] LABS: ALK PHOS 148 U/L (45-117)
[2024-11-22 11:35] LABS: ANISOCYTOSIS 0; HELMET CELLS 0; HOWELL-JOLLY BODIES 0; MACROCYTOSIS 0; OVALOCYTE 0; ROULEAU 0; SICKELED CELLS 0; TARGET CELLS 0; TEAR DROP CELLS 0; TOXIC GRANULATION 0
[2024-11-22] MEDS: PALONOSETRON HCL 0.25 MG/5 ML VIAL IVPUSH ONE (12:00)
[2024-11-22] MEDS: DEXAMETHASONE SODIUM PHOSPHATE 10 MG in SODIUM CHLORIDE 50 ML IVPB ONE (12:14)
[2024-11-22] MEDS: SODIUM CHLORIDE IVPB ONE (12:42)
[2024-11-22] MEDS: DOCETAXEL IVPB ONE (12:42)
[2024-11-22] MEDS: CYCLOPHOSPHAMIDE INJECTION 1,240 MG in SODIUM CHLORIDE 250 ML IVPB ONE (13:49)
[2024-11-22 14:21] VITALS: RESP 20; TEMP 98.4
[2024-11-22] MEDS: PORTA CATH FLUSH 10 ML IVPUSH PRN (14:50)
[2024-11-22 15:29] VITALS: BP 141/78; PULSE 90
== END 2024-11-22 14:55 | disposition home or self-care (01) ==
LOC: JONCCHEMO 09:40 → J7W 09:42 → JONCCHEMO 14:55
PROVIDERS: ATTEND Internal Medicine Hematology & Oncology
DX: Z51.11 Encounter for antineoplastic chemotherapy (principal); C50.912 Malignant neoplasm of unspecified site of left female breast
CPT/HCPCS: 36415; 80048; 80076; 85025; 96375; 96413; 96417; J9074

== ENCOUNTER 2024-11-23 01:10 | Day surgery (SDC) | payer MEDICARE, OTHER ==
[2024-11-23] MEDS: PEGFILGRASTIM-CBQV (UDENYCA) 6 MG/0.6 ML SYRINGE SQ ONE (13:30)
[2024-11-23 15:06] VITALS: BP 123/82; PULSE 102; RESP 20; TEMP 98.5
== END 2024-11-23 13:45 | disposition home or self-care (01) ==
LOC: JONCCHEMO 01:10 → J7W 01:13 → JONCCHEMO 13:44
PROVIDERS: ATTEND Internal Medicine Hematology & Oncology
PROC: 3E013GC Introduction of Other Therapeutic Substance into Subcutaneous Tissue, Percutaneous Approach (ICD-10-PCS; principal; 2024-11-23)
DX: C50.912 Malignant neoplasm of unspecified site of left female breast (principal); Z76.89 Persons encountering health services in other specified circumstances
CPT/HCPCS: 96372; Q5111

== ENCOUNTER 2025-01-12 09:25 | Day surgery (SDC) | payer MEDICARE, OTHER ==
[2025-01-12] MEDS: DEXAMETHASONE SODIUM PHOSPHATE IVPB ONE (11:08)
[2025-01-12] MEDS: ONDANSETRON IVPB ONE (11:08)
[2025-01-12] MEDS: [UNRECOGNIZED DRUG - OTHER] IVPB ONE (11:08)
[2025-01-12] MEDS: PALONOSETRON HCL 0.25 MG/5 ML VIAL IVPUSH ONE (11:11)
[2025-01-12] MEDS: SODIUM CHLORIDE IVPB ONE (11:57)
[2025-01-12] MEDS: DOCETAXEL IVPB ONE (11:57)
[2025-01-12] MEDS: CYCLOPHOSPHAMIDE INJECTION 1,240 MG in SODIUM CHLORIDE 250 ML IVPB ONE (13:02)
[2025-01-12] MEDS ORDERED: PORTA CATH FLUSH 10 ML IVPUSH PRN (15:56)
[2025-01-12 16:03] VITALS: BP 114/75; PULSE 111; RESP 20; TEMP 98.3
== END 2025-01-12 14:00 | disposition home or self-care (01) ==
LOC: JONCCHEMO 09:25
PROVIDERS: ATTEND Internal Medicine Hematology & Oncology
PROC: 3E04305 Introduction of Other Antineoplastic into Central Vein, Percutaneous Approach (ICD-10-PCS; principal; 2025-01-12)
PROC: 3E043GC Introduction of Other Therapeutic Substance into Central Vein, Percutaneous Approach (ICD-10-PCS; 2025-01-12)
DX: Z51.11 Encounter for antineoplastic chemotherapy (principal); C50.412 Malignant neoplasm of upper-outer quadrant of left female breast; Z17.0 Estrogen receptor positive status [ER+]
CPT/HCPCS: 96368; 96413; 96415; J2405; J9074

== ENCOUNTER 2025-01-13 14:27 | Day surgery (SDC) | payer MEDICARE, OTHER ==
[2025-01-13] MEDS: PEGFILGRASTIM-CBQV (UDENYCA) 6 MG/0.6 ML SYRINGE SQ ONE (14:14)
[2025-01-13 15:35] VITALS: BP 116/71; PULSE 98; RESP 20; TEMP 97.8
== END 2025-01-13 14:30 | disposition home or self-care (01) ==
LOC: JONCCHEMO 14:27 → J7W 14:27 → JONCCHEMO 14:30
PROVIDERS: ATTEND Internal Medicine Hematology & Oncology
PROC: 3E013GC Introduction of Other Therapeutic Substance into Subcutaneous Tissue, Percutaneous Approach (ICD-10-PCS; principal; 2025-01-13)
DX: C50.412 Malignant neoplasm of upper-outer quadrant of left female breast (principal); Z76.89 Persons encountering health services in other specified circumstances
CPT/HCPCS: 96372; Q5111

== ENCOUNTER 2025-02-02 09:04 | Day surgery (SDC) | payer MEDICARE, OTHER ==
[2025-02-02] MEDS: PALONOSETRON HCL 0.25 MG/5 ML VIAL IVPUSH ONE (10:16)
[2025-02-02] MEDS: [UNRECOGNIZED DRUG - OTHER] IVPB ONE (10:22)
[2025-02-02] MEDS: ONDANSETRON IVPB ONE (10:22)
[2025-02-02] MEDS: DEXAMETHASONE SODIUM PHOSPHATE IVPB ONE (10:22)
[2025-02-02] MEDS: SODIUM CHLORIDE IVPB ONE (11:20)
[2025-02-02] MEDS: DOCETAXEL IVPB ONE (11:20)
[2025-02-02] MEDS: CYCLOPHOSPHAMIDE INJECTION 1,240 MG in SODIUM CHLORIDE 250 ML IVPB ONE (12:30)
[2025-02-02] MEDS: PORTA CATH FLUSH 10 ML IVPUSH PRN (13:10)
[2025-02-02 15:17] VITALS: BP 116/77; PULSE 111; RESP 20; TEMP 98.2
== END 2025-02-02 13:30 | disposition home or self-care (01) ==
LOC: JONCCHEMO 09:04 → J7W 09:06 → JONCCHEMO 13:30
PROVIDERS: ATTEND Internal Medicine Hematology & Oncology
PROC: 3E04305 Introduction of Other Antineoplastic into Central Vein, Percutaneous Approach (ICD-10-PCS; principal; 2025-02-02)
PROC: 3E043GC Introduction of Other Therapeutic Substance into Central Vein, Percutaneous Approach (ICD-10-PCS; 2025-02-02)
DX: Z51.11 Encounter for antineoplastic chemotherapy (principal); C50.412 Malignant neoplasm of upper-outer quadrant of left female breast; Z17.0 Estrogen receptor positive status [ER+]
CPT/HCPCS: 96374; 96375; 96413; 96417; J2405; J9074

== ENCOUNTER 2025-02-03 13:44 | Day surgery (SDC) | payer MEDICARE, OTHER ==
[2025-02-03] MEDS: PEGFILGRASTIM-CBQV (UDENYCA) 6 MG/0.6 ML SYRINGE SQ ONE (13:48)
[2025-02-03 14:06] VITALS: BP 108/66; PULSE 94; RESP 20; TEMP 98.5
== END 2025-02-03 14:11 | disposition home or self-care (01) ==
LOC: J7W 13:44 → JONCCHEMO 13:44
PROVIDERS: ATTEND Internal Medicine Hematology & Oncology
PROC: 3E013GC Introduction of Other Therapeutic Substance into Subcutaneous Tissue, Percutaneous Approach (ICD-10-PCS; principal; 2025-02-03)
DX: C50.912 Malignant neoplasm of unspecified site of left female breast (principal); Z17.0 Estrogen receptor positive status [ER+]; Z76.89 Persons encountering health services in other specified circumstances
CPT/HCPCS: 96372; Q5111

== ENCOUNTER 2025-03-21 06:04 | Inpatient (IN) | payer MEDICARE, OTHER ==
[2025-03-17 15:30] VITALS: BMI 31.9
[2025-03-21] MEDS ORDERED: LIDOCAINE HCL 1%, 10 MG/ML (20ML VIAL) ONE (07:24)
[2025-03-21] MEDS ORDERED: PROPOFOL 80 ML ONE (08:27)
[2025-03-21] MEDS ORDERED: LIDOCAINE HCL/PF 2% SDV 5ML VIAL ONE (08:27)
[2025-03-21] MEDS ORDERED: MIDAZOLAM HCL 2 MG/2 ML SINGLE DOSE VIAL ONE (08:28)
[2025-03-21] MEDS ORDERED: SUCCINYLCHOLINE CHLORIDE 200 MG/10 ML SYRINGE ONE (08:28)
[2025-03-21] MEDS ORDERED: DEXMEDETOMIDINE HCL 200 MCG/2 ML IVPB ONE (08:35)
[2025-03-21] MEDS ORDERED: ISOSULFAN BLUE 50 MG/5 ML VIAL SQ ONE (09:20)
[2025-03-21] MEDS: ceFAZolin SODIUM 1 GM VIAL IVPB ONE (12:08)
[2025-03-21] MEDS ORDERED: ceFAZolin SODIUM 1 GM VIAL ONE ×2 (12:11→17:23)
[2025-03-21] MEDS ORDERED: DEXAMETHASONE SOD PHOSPHATE 4 MG/1 ML VIAL ONE (12:11)
[2025-03-21] MEDS ORDERED: ROCURONIUM BROMIDE 50 MG/5 ML SYRINGE ONE (12:48)
[2025-03-21] MEDS: LIDOCAINE HCL 1%, 10 MG/ML (20ML VIAL) NR ONE (13:40)
[2025-03-21] MEDS ORDERED: PROPOFOL 60 ML ONE (13:42)
[2025-03-21] MEDS ORDERED: ONDANSETRON 4 MG/2 ML VIAL IVPB PRN (14:09)
[2025-03-21] MEDS ORDERED: ACETAMINOPHEN 500 MG TABLET (FP) PO PRN (14:09)
[2025-03-21] MEDS ORDERED: ONDANSETRON 4 MG/2 ML VIAL ONE (14:09)
[2025-03-21] MEDS ORDERED: MEPERIDINE HCL 25 MG/ML VIAL IM PRN ×2 (14:10→14:12)
[2025-03-21] MEDS ORDERED: PROMETHAZINE HCL 25 MG/1 ML VIAL IVPB PRN (15:13)
[2025-03-21] MEDS ORDERED: LACTATED RINGERS SOLUTION 1,000 ML IV SCH (15:15)
[2025-03-21] MEDS: LACTATED RINGERS SOLUTION 1,000 ML/1,000 ML INFUS.BAG IV SCH (15:37)
[2025-03-21] MEDS ORDERED: ACETAMINOPHEN INJECTION 100 ML ONE (15:38)
[2025-03-21] MEDS: ACETAMINOPHEN 1000 MG/100 ML BAG IVPB ONE (15:38)
[2025-03-21] MEDS ORDERED: HYDROmorphone *PCA* 10MG/50ML DISP.SYRIN ONE (17:12)
[2025-03-21] MEDS: HYDROmorphone *PCA* 10MG/50ML DISP.SYRIN PCA SCH (17:20)
[2025-03-21] MEDS: CEFAZOLIN 1 GM/D5W 1 GM/50 ML BAG IVPB SCH (17:25)
[2025-03-21] MEDS: MONTELUKAST NA 10 MG TABLET PO SCH (21:47)
[2025-03-21] MEDS: ATORVASTATIN CA 10 MG TABLET (FP) PO SCH (21:47)
[2025-03-21 22:51] VITALS: RESP 18; TEMP 97.5
[2025-03-22] MEDS ORDERED: oxyCODONE HCL 5 MG TABLET PO PRN ×2 (07:41→07:44)
[2025-03-22] MEDS ORDERED: ACETAMINOPHEN 325 MG TABLET (FP) PO PRN ×2 (07:42→07:43)
[2025-03-22 09:17] VITALS: BP 99/50; PULSE 84
[2025-03-22] MEDS: LOSARTAN POTASSIUM 50 MG TABLET PO SCH (09:26)
[2025-03-22] MEDS: PANTOPRAZOLE 20 MG TABLET PO SCH (09:26)
== END 2025-03-22 12:49 | disposition home or self-care (01) | DRG 580 ==
LOC: J2C 06:04 → EDSTATUS 08:15 → J4W 16:55 → J2C 16:58 → J8W 17:56
PROVIDERS: ADMIT Surgery; ATTEND Surgery
PROC: 0HTU0ZZ Resection of Left Breast, Open Approach (ICD-10-PCS; principal; 2025-03-21 09:00)
PROC: 0HBT0ZZ Excision of Right Breast, Open Approach (ICD-10-PCS; 2025-03-21 09:00)
PROC: 07B50ZX Excision of Right Axillary Lymphatic, Open Approach, Diagnostic (ICD-10-PCS; 2025-03-21 09:00)
PROC: 07B60ZX Excision of Left Axillary Lymphatic, Open Approach, Diagnostic (ICD-10-PCS; 2025-03-21 09:00)
DX: C50.912 Malignant neoplasm of unspecified site of left female breast (principal); C77.3 Secondary and unspecified malignant neoplasm of axilla and upper limb lymph nodes; C50.911 Malignant neoplasm of unspecified site of right female breast
CPT/HCPCS: 19281; 76098-TC-FY; 77065-TC; 78195-TC; 86850; 86900; 86901; 88307-TC; 88309-TC; 88341-TC; 88342-TC; 94010; 94760; A9541; Q4116

== ENCOUNTER 2025-04-18 06:52 | Day surgery (SDC) | payer MEDICARE, OTHER ==
[2025-04-17 17:02] VITALS: BMI 31.8
[2025-04-18] MEDS ORDERED: PROPOFOL 20 ML ONE ×2 (12:43→14:27)
[2025-04-18] MEDS ORDERED: MIDAZOLAM HCL 2 MG/2 ML SINGLE DOSE VIAL ONE (12:43)
[2025-04-18] MEDS ORDERED: LIDOCAINE HCL 1%, 10 MG/ML (20ML VIAL) ONE (13:55)
[2025-04-18] MEDS ORDERED: DEXAMETHASONE SOD PHOSPHATE 4 MG/1 ML VIAL ONE ×2 (14:28)
[2025-04-18] MEDS ORDERED: ONDANSETRON 4 MG/2 ML VIAL ONE ×2 (14:28)
[2025-04-18] MEDS ORDERED: ceFAZolin SODIUM 1 GM VIAL ONE (14:28)
[2025-04-18] MEDS: ceFAZolin SODIUM 1 GM VIAL IVPB ONE (14:30)
[2025-04-18] MEDS: LIDOCAINE HCL 1%, 10 MG/ML (20ML VIAL) INF ONE (14:32)
[2025-04-18] MEDS ORDERED: LACTATED RINGERS SOLUTION 1,000 ML IV SCH (15:30)
[2025-04-18 15:36] VITALS: RESP 16
[2025-04-18 17:30] VITALS: BP 157/84; PULSE 75; TEMP 97.4
== END 2025-04-18 17:20 | disposition home or self-care (01) ==
LOC: JASU-SURG 06:52
PROVIDERS: ATTEND Surgery
PROC: 0HBT0ZZ Excision of Right Breast, Open Approach (ICD-10-PCS; principal; 2025-04-18 12:00)
DX: D05.11 Intraductal carcinoma in situ of right breast (principal)
CPT/HCPCS: 88307-TC; 94760

== ENCOUNTER 2025-05-15 16:17 | Inpatient (IN) | payer MEDICARE, OTHER ==
[2025-05-15 16:23] VITALS: BMI 30.9
[2025-05-15] MEDS ORDERED: VANCOMYCIN 1 GM PREMIX (F) 1 GM/200 ML BAG ONE (17:51)
[2025-05-15 17:59] LABS: ABSOLUTE IMMATURE GRANULOCYTES 0.02 x10^3/uL (0.0-0.031); BASOPHILS # 0.03 x10^3/uL (0.01-0.08); EOSINOPHIL % 1.3 % (0.7-5.8); EOSINOPHILS # 0.08 x10^3/uL (0.04-0.36); MCHC 31.6 g/dl (32.2-35.5); MEAN CELL VOLUME 97.0 fl (79.4-94.8); MEAN PLT VOLUME 9.1 fl (9.4-12.3); MONOCYTE # 0.55 x10^3/uL (0.24-0.86); MONOCYTE % 9.2 % (4.7-12.5); RDW 11.5 % (12.4-16.4)
[2025-05-15] MEDS: VANCOMYCIN 1,000 MG in DEXTROSE 5%-WATER - 250 ML IVPB ONE (18:01)
[2025-05-15 18:53] LABS: ERYTHROCYTE SEDIMENTATION RATE 81 mm/hr (0-30)
[2025-05-15 19:20] LABS: CO2 29.0 mmol/L (21-32); GLUCOSE,RANDOM 86.0 mg/dL (74-106)
[2025-05-15 19:23] LABS: CREATININE 0.7 mg/dL (0.55-1.3); SGOT/AST 19.0 U/L (15-37); SGPT/ALT 27.0 U/L (13-61); TOT PROT 6.7 g/dl (6.4-8.2)
[2025-05-15 19:37] LABS: ALK PHOS 175.0 U/L (45-117)
[2025-05-15] MEDS ORDERED: ACETAMINOPHEN 1000 MG/100 ML BAG IVPB PRN (21:48)
[2025-05-15] MEDS ORDERED: PIPERACILLIN/TAZOB 3.375 GM 3.375 GM in DEXTROSE 5%-WATER - 50 ML IVPB SCH (22:00)
[2025-05-15] MEDS: PIPERACILLIN/TAZOB 3.375 GM 3.375 GM in DEXTROSE 5%-WATER - 50 ML IVPB SCH (23:54)
[2025-05-16] MEDS: VANCOMYCIN/WATER 1250 MG 1,250 MG/250 ML BAG IVPB SCH ×2 (06:17→20:20)
[2025-05-16 09:04] LABS: INR 1.31 (0.83-1.09); PROTHROMBIN TIME (PATIENT) 14.4 SEC (9.7-13.0)
[2025-05-16 09:05] LABS: ABSOLUTE IMMATURE GRANULOCYTES 0.02 x10^3/uL (0.0-0.031); BASOPHILS # 0.02 x10^3/uL (0.01-0.08); EOSINOPHIL % 1.4 % (0.7-5.8); EOSINOPHILS # 0.07 x10^3/uL (0.04-0.36); MCHC 32.0 g/dl (32.2-35.5); MEAN CELL VOLUME 95.9 fl (79.4-94.8); MEAN PLT VOLUME 9.8 fl (9.4-12.3); MONOCYTE # 0.55 x10^3/uL (0.24-0.86); MONOCYTE % 11.1 % (4.7-12.5); RDW 11.6 % (12.4-16.4)
[2025-05-16] MEDS: LOSARTAN POTASSIUM 50 MG TABLET PO SCH (09:16)
[2025-05-16] MEDS ORDERED: ENOXAPARIN NA (PORCINE) 40 MG/0.4 ML DISP.SYRIN SQ SCH (10:00)
[2025-05-16 10:13] LABS: CO2 26.0 mmol/L (21-32); GLUCOSE,RANDOM 88.0 mg/dL (74-106)
[2025-05-16 10:15] LABS: CREATININE 0.7 mg/dL (0.55-1.3)
[2025-05-16 10:16] LABS: SGOT/AST 16.0 U/L (15-37); SGPT/ALT 24.0 U/L (13-61)
[2025-05-16 10:17] LABS: TOT PROT 6.0 g/dl (6.4-8.2)
[2025-05-16 10:19] LABS: ALK PHOS 148.0 U/L (45-117)
[2025-05-16] MEDS: MULTIVITAMINS (DAILY MVI) TABLET (FP) PO SCH (12:02)
[2025-05-16 12:44] LABS: HCV DIAGNOSTIC IN-HOUSE W/RFLX NON-REACTIVE (NONREACTIVE)
[2025-05-16] MEDS: VANCOMYCIN/WATER FOR INJ (PEG) 1,000 MG/200 ML BAG IVPB SCH (17:39)
[2025-05-16] MEDS: ENOXAPARIN NA (PORCINE) 40 MG/0.4 ML DISP.SYRIN SQ ONE (17:40)
[2025-05-16 19:29] LABS: HIV INTERPRETATION NEGATIVE (NEGATIVE)
[2025-05-16] MEDS: PIPERACILLIN/TAZOB 3.375 GM 3.375 GM in DEXTROSE 5%-WATER - 50 ML IVPB SCH (20:18)
[2025-05-16] MEDS: MONTELUKAST NA 10 MG TABLET PO SCH (22:41)
[2025-05-17] MEDS: ACETAMINOPHEN 1000 MG/100 ML BAG IVPB ONE (01:34)
[2025-05-17] MEDS: PIPERACILLIN/TAZOB 3.375 GM 3.375 GM in DEXTROSE 5%-WATER - 50 ML IVPB SCH (01:35)
[2025-05-17 08:44] LABS: ABSOLUTE IMMATURE GRANULOCYTES 0.01 x10^3/uL (0.0-0.031); BASOPHILS # 0.02 x10^3/uL (0.01-0.08); EOSINOPHIL % 2.2 % (0.7-5.8); EOSINOPHILS # 0.11 x10^3/uL (0.04-0.36); MCHC 31.9 g/dl (32.2-35.5); MEAN CELL VOLUME 95.9 fl (79.4-94.8); MEAN PLT VOLUME 9.3 fl (9.4-12.3); MONOCYTE # 0.55 x10^3/uL (0.24-0.86); MONOCYTE % 11.0 % (4.7-12.5); RDW 11.3 % (12.4-16.4)
[2025-05-17 09:17] LABS: GLUCOSE,RANDOM 99.0 mg/dL (74-106)
[2025-05-17 09:18] LABS: CO2 28.0 mmol/L (21-32); CREATININE 0.7 mg/dL (0.55-1.3)
[2025-05-17 09:19] LABS: SGPT/ALT 28.0 U/L (13-61)
[2025-05-17 09:20] LABS: SGOT/AST 17.0 U/L (15-37)
[2025-05-17 09:21] LABS: TOT PROT 6.8 g/dl (6.4-8.2)
[2025-05-17 09:22] LABS: ALK PHOS 169.0 U/L (45-117)
[2025-05-17] MEDS: ENOXAPARIN NA (PORCINE) 40 MG/0.4 ML DISP.SYRIN SQ SCH (10:17)
[2025-05-18] MEDS: ACETAMINOPHEN 1000 MG/100 ML BAG IVPB ONE (02:52)
[2025-05-18 08:39] LABS: MCHC 31.5 g/dl (32.2-35.5); MEAN CELL VOLUME 95.4 fl (79.4-94.8); MEAN PLT VOLUME 9.8 fl (9.4-12.3); RDW 11.3 % (12.4-16.4)
[2025-05-18 08:58] LABS: CO2 26.0 mmol/L (21-32); GLUCOSE,RANDOM 100.0 mg/dL (74-106)
[2025-05-18 09:01] LABS: CREATININE 0.7 mg/dL (0.55-1.3); SGOT/AST 23.0 U/L (15-37); SGPT/ALT 37.0 U/L (13-61)
[2025-05-18 09:03] LABS: TOT PROT 6.1 g/dl (6.4-8.2)
[2025-05-18 09:04] LABS: ALK PHOS 159.0 U/L (45-117)
[2025-05-18] MEDS ORDERED: KETOROLAC TROMETHAMINE 10 MG TABLET PO PRN (10:51)
[2025-05-18] MEDS: ACETAMINOPHEN 325 MG TABLET (FP) PO SCH (12:58)
[2025-05-19 08:48] LABS: ABSOLUTE IMMATURE GRANULOCYTES 0.01 x10^3/uL (0.0-0.031); BASOPHILS # 0.03 x10^3/uL (0.01-0.08); EOSINOPHIL % 2.7 % (0.7-5.8); EOSINOPHILS # 0.11 x10^3/uL (0.04-0.36); MCHC 32.1 g/dl (32.2-35.5); MEAN CELL VOLUME 94.8 fl (79.4-94.8); MEAN PLT VOLUME 9.5 fl (9.4-12.3); MONOCYTE # 0.40 x10^3/uL (0.24-0.86); MONOCYTE % 9.8 % (4.7-12.5); RDW 11.4 % (12.4-16.4)
[2025-05-19 11:02] LABS: CO2 25.0 mmol/L (21-32); GLUCOSE,RANDOM 88.0 mg/dL (74-106)
[2025-05-19 11:05] LABS: CREATININE 0.7 mg/dL (0.55-1.3); SGOT/AST 25.0 U/L (15-37); SGPT/ALT 42.0 U/L (13-61)
[2025-05-19 11:07] LABS: ALK PHOS 156.0 U/L (45-117); TOT PROT 6.1 g/dl (6.4-8.2)
[2025-05-19] MEDS: POLYETHYLENE GLYCOL (HEALTHYLAX) 3350 17 GM PACKET PO SCH (21:18)
[2025-05-19] MEDS: DOCUSATE SODIUM 100 MG CAPSULE (FP) PO SCH (21:18)
[2025-05-20 08:31] LABS: ABSOLUTE IMMATURE GRANULOCYTES 0.01 x10^3/uL (0.0-0.031); BASOPHILS # 0.03 x10^3/uL (0.01-0.08); EOSINOPHIL % 3.4 % (0.7-5.8); EOSINOPHILS # 0.15 x10^3/uL (0.04-0.36); MCHC 32.1 g/dl (32.2-35.5); MEAN CELL VOLUME 95.4 fl (79.4-94.8); MEAN PLT VOLUME 9.5 fl (9.4-12.3); MONOCYTE # 0.41 x10^3/uL (0.24-0.86); MONOCYTE % 9.3 % (4.7-12.5); RDW 11.5 % (12.4-16.4)
[2025-05-20 09:20] LABS: CO2 23.0 mmol/L (21-32); GLUCOSE,RANDOM 88.0 mg/dL (74-106)
[2025-05-20 09:24] LABS: CREATININE 0.6 mg/dL (0.55-1.3); SGOT/AST 33.0 U/L (15-37); SGPT/ALT 52.0 U/L (13-61); TOT PROT 6.0 g/dl (6.4-8.2)
[2025-05-20 09:28] LABS: ALK PHOS 151.0 U/L (45-117)
[2025-05-20] MEDS ORDERED: DOCUSATE SODIUM 100 MG CAPSULE (FP) PO PRN (17:09)
[2025-05-21] MEDS: ACETAMINOPHEN 325 MG TABLET (FP) PO PRN (02:38)
[2025-05-21 09:28] LABS: ABSOLUTE IMMATURE GRANULOCYTES 0.01 x10^3/uL (0.0-0.031); BASOPHILS # 0.04 x10^3/uL (0.01-0.08); EOSINOPHIL % 2.6 % (0.7-5.8); EOSINOPHILS # 0.12 x10^3/uL (0.04-0.36); MCHC 31.5 g/dl (32.2-35.5); MEAN CELL VOLUME 96.0 fl (79.4-94.8); MEAN PLT VOLUME 9.2 fl (9.4-12.3); MONOCYTE # 0.31 x10^3/uL (0.24-0.86); MONOCYTE % 6.6 % (4.7-12.5); RDW 11.7 % (12.4-16.4)
[2025-05-21 09:57] LABS: CO2 26.0 mmol/L (21-32); GLUCOSE,RANDOM 94.0 mg/dL (74-106)
[2025-05-21 10:01] LABS: CREATININE 0.7 mg/dL (0.55-1.3); SGOT/AST 31.0 U/L (15-37); SGPT/ALT 57.0 U/L (13-61)
[2025-05-21 10:07] LABS: ALK PHOS 180.0 U/L (45-117); TOT PROT 7.2 g/dl (6.4-8.2)
[2025-05-22 08:37] LABS: MCHC 31.5 g/dl (32.2-35.5); MEAN CELL VOLUME 97.0 fl (79.4-94.8); MEAN PLT VOLUME 9.6 fl (9.4-12.3); RDW 11.9 % (12.4-16.4)
[2025-05-22 09:25] LABS: GLUCOSE,RANDOM 99.0 mg/dL (74-106)
[2025-05-22 09:27] LABS: CO2 24.0 mmol/L (21-32)
[2025-05-22 09:28] LABS: CREATININE 0.7 mg/dL (0.55-1.3)
[2025-05-22 09:29] LABS: SGOT/AST 26.0 U/L (15-37); SGPT/ALT 53.0 U/L (13-61)
[2025-05-22 09:30] LABS: ALK PHOS 152.0 U/L (45-117); TOT PROT 6.0 g/dl (6.4-8.2)
[2025-05-23 09:16] LABS: ABSOLUTE IMMATURE GRANULOCYTES 0.01 x10^3/uL (0.0-0.031); BASOPHILS # 0.03 x10^3/uL (0.01-0.08); EOSINOPHIL % 2.9 % (0.7-5.8); EOSINOPHILS # 0.12 x10^3/uL (0.04-0.36); MCHC 31.1 g/dl (32.2-35.5); MEAN CELL VOLUME 98.3 fl (79.4-94.8); MEAN PLT VOLUME 9.8 fl (9.4-12.3); MONOCYTE # 0.37 x10^3/uL (0.24-0.86); MONOCYTE % 9.1 % (4.7-12.5); RDW 11.9 % (12.4-16.4)
[2025-05-23 09:56] LABS: CO2 23.0 mmol/L (21-32); GLUCOSE,RANDOM 85.0 mg/dL (74-106)
[2025-05-23 09:59] LABS: CREATININE 0.6 mg/dL (0.55-1.3); SGOT/AST 21.0 U/L (15-37); SGPT/ALT 43.0 U/L (13-61)
[2025-05-23 10:00] LABS: TOT PROT 5.8 g/dl (6.4-8.2)
[2025-05-23 10:02] LABS: ALK PHOS 143.0 U/L (45-117)
[2025-05-24 08:46] LABS: MCHC 32.1 g/dl (32.2-35.5); MEAN CELL VOLUME 95.9 fl (79.4-94.8); MEAN PLT VOLUME 9.7 fl (9.4-12.3); RDW 12.0 % (12.4-16.4)
[2025-05-24 09:35] LABS: CO2 24.0 mmol/L (21-32); GLUCOSE,RANDOM 95.0 mg/dL (74-106)
[2025-05-24 09:37] LABS: CREATININE 0.6 mg/dL (0.55-1.3); SGPT/ALT 44.0 U/L (13-61)
[2025-05-24 09:38] LABS: SGOT/AST 19.0 U/L (15-37)
[2025-05-24 09:39] LABS: TOT PROT 6.3 g/dl (6.4-8.2)
[2025-05-24 09:40] LABS: ALK PHOS 158.0 U/L (45-117)
[2025-05-24] MEDS: CEFTRIAXONE 2 GM in DEXTROSE 5%-WATER 100 ML IVPB SCH (09:58)
[2025-05-24 11:47] VITALS: RESP 17
[2025-05-25 08:51] LABS: ABSOLUTE IMMATURE GRANULOCYTES 0.02 x10^3/uL (0.0-0.031); BASOPHILS # 0.04 x10^3/uL (0.01-0.08); EOSINOPHIL % 2.5 % (0.7-5.8); EOSINOPHILS # 0.14 x10^3/uL (0.04-0.36); MCHC 32.2 g/dl (32.2-35.5); MEAN CELL VOLUME 95.5 fl (79.4-94.8); MEAN PLT VOLUME 10.1 fl (9.4-12.3); MONOCYTE # 0.56 x10^3/uL (0.24-0.86); MONOCYTE % 10.1 % (4.7-12.5); RDW 11.9 % (12.4-16.4)
[2025-05-25 09:27] LABS: CO2 25.0 mmol/L (21-32); GLUCOSE,RANDOM 94.0 mg/dL (74-106)
[2025-05-25 09:30] LABS: CREATININE 0.6 mg/dL (0.55-1.3); SGOT/AST 26.0 U/L (15-37); SGPT/ALT 55.0 U/L (13-61)
[2025-05-25 09:32] LABS: TOT PROT 7.2 g/dl (6.4-8.2)
[2025-05-25 09:33] LABS: ALK PHOS 183.0 U/L (45-117)
[2025-05-25 11:04] VITALS: BP 113/74; PULSE 74; TEMP 97.9
== END 2025-05-25 11:53 | disposition home health service (06) | DRG 863 ==
LOC: JER 16:17 → JERBED 19:40 → J8W 23:04
PROVIDERS: ADMIT Internal Medicine; ATTEND Nurse Practitioner Acute Care
PROC: 0H9U3ZX Drainage of Left Breast, Percutaneous Approach, Diagnostic (ICD-10-PCS; principal; 2025-05-22)
PROC: 02HV33Z Insertion of Infusion Device into Superior Vena Cava, Percutaneous Approach (ICD-10-PCS; 2025-05-24)
PROC: B548ZZA Ultrasonography of Superior Vena Cava, Guidance (ICD-10-PCS; 2025-05-24)
DX: T81.49XA Infection following a procedure, other surgical site, initial encounter (principal); K21.9 Gastro-esophageal reflux disease without esophagitis; E78.5 Hyperlipidemia, unspecified; I10 Essential (primary) hypertension; C50.912 Malignant neoplasm of unspecified site of left female breast; Y83.9 Surgical procedure, unspecified as the cause of abnormal reaction of the patient, or of later complication, without mention of misadventure at the time of the procedure
CPT/HCPCS: 36415; 36569; 71260-TC; 76604; 80053; 83735; 84100; 85025; 85610; 85651; 86140; 86803; 86850; 86900; 86901; 87040; 87070; 87075; 87081; 87205; 87389; 93005; 93010; 94010; 99285-25; G0480; Q9967

== ENCOUNTER 2025-07-26 09:22 | Day surgery (SDC) | payer MEDICARE, OTHER ==
[2025-07-26 09:59] LABS: ABSOLUTE IMMATURE GRANULOCYTES 0.01 x10^3/uL (0.0-0.031); BASOPHILS # 0.01 x10^3/uL (0.01-0.08); EOSINOPHIL % 1.3 % (0.7-5.8); EOSINOPHILS # 0.05 x10^3/uL (0.04-0.36); MCHC 31.8 g/dl (32.2-35.5); MEAN CELL VOLUME 97.1 fl (79.4-94.8); MEAN PLT VOLUME 9.6 fl (9.4-12.3); MONOCYTE # 0.31 x10^3/uL (0.24-0.86); MONOCYTE % 8.2 % (4.7-12.5); RDW 13.9 % (12.4-16.4)
[2025-07-26 10:44] LABS: GLUCOSE,RANDOM 91 mg/dL (74-106)
[2025-07-26 10:45] LABS: CO2 23 mmol/L (21-32); TOT PROT 7.0 g/dl (6.4-8.2)
[2025-07-26 10:50] LABS: CREATININE 0.76 mg/dL (0.55-1.3); SGOT/AST 21 U/L (5-34); SGPT/ALT 23 U/L (0-55)
[2025-07-26 10:56] LABS: ALK PHOS 183 U/L (40-150)
[2025-07-26] MEDS: FOSAPREPITANT DIMEGLUMINE 150 MG in SODIUM CHLORIDE 145 ML IVPB ONE (11:30)
[2025-07-26] MEDS: ACETAMINOPHEN 325 MG TABLET (FP) PO ONE (11:51)
[2025-07-26] MEDS: PALONOSETRON HCL 0.25 MG/5 ML VIAL IVPUSH ONE (11:52)
[2025-07-26] MEDS: DEXAMETHASONE SODIUM PHOSPHATE 10 MG, DIPHENHYDRAMINE 50 MG in SODIUM CHLORIDE 100 ML IVPB ONE (12:01)
[2025-07-26] MEDS: PERTUZUMAB 420 MG in SODIUM CHLORIDE 250 ML IVPB ONE (13:36)
[2025-07-26] MEDS: TRASTUZUMAB QYYP IVPB ONE (14:10)
[2025-07-26] MEDS: SODIUM CHLORIDE IVPB ONE ×2 (14:10→14:48)
[2025-07-26] MEDS: CARBOPLATIN IVPB ONE (14:48)
[2025-07-26] MEDS: PORTA CATH FLUSH 10 ML IVPUSH PRN (15:25)
[2025-07-26 17:12] VITALS: RESP 20; TEMP 98.1
[2025-07-26 17:38] VITALS: BP 124/73; PULSE 75
== END 2025-07-26 15:30 | disposition home or self-care (01) ==
LOC: JONCNONCHE 09:22
PROVIDERS: ATTEND Internal Medicine Hematology & Oncology
DX: Z51.11 Encounter for antineoplastic chemotherapy (principal); C50.919 Malignant neoplasm of unspecified site of unspecified female breast
CPT/HCPCS: 36415; 80048; 80076; 85025; 96367; 96375; 96413; 96417; J1453; J9306; Q5116

== ENCOUNTER 2025-09-07 09:21 | Day surgery (SDC) | payer MEDICARE, OTHER ==
[~2025-09-07 09:21] MED LIST: ACETAMINOPHEN 325 MG TABLET (FP) PO ONE; DEXAMETHASONE SODIUM PHOSPHATE 10 MG, DIPHENHYDRAMINE 50 MG in SODIUM CHLORIDE 100 ML IVPB ONE; FOSAPREPITANT DIMEGLUMINE 150 MG in SODIUM CHLORIDE 145 ML IVPB ONE; PALONOSETRON HCL 0.25 MG/5 ML VIAL IVPUSH ONE; PERTUZUMAB 420 MG in SODIUM CHLORIDE 250 ML IVPB ONE; SODIUM CHLORIDE IVPB ONE; TRASTUZUMAB QYYP IVPB ONE
[2025-09-07 10:41] LABS: ABSOLUTE IMMATURE GRANULOCYTES 0.00 x10^3/uL (0.0-0.031); BASOPHILS # 0.01 x10^3/uL (0.01-0.08); EOSINOPHIL % 2.1 % (0.7-5.8); EOSINOPHILS # 0.07 x10^3/uL (0.04-0.36); MCHC 32.3 g/dl (32.2-35.5); MEAN CELL VOLUME 100.3 fl (79.4-94.8); MEAN PLT VOLUME 9.8 fl (9.4-12.3); MONOCYTE # 0.31 x10^3/uL (0.24-0.86); MONOCYTE % 9.1 % (4.7-12.5); RDW 14.1 % (12.4-16.4)
[2025-09-07 11:11] LABS: GLUCOSE,RANDOM 82 mg/dL (74-106); TOT PROT 6.9 g/dl (6.4-8.2)
[2025-09-07 11:12] LABS: CO2 24 mmol/L (21-32)
[2025-09-07 11:16] LABS: SGOT/AST 19 U/L (5-34); SGPT/ALT 16 U/L (0-55)
[2025-09-07 11:17] LABS: CREATININE 0.71 mg/dL (0.55-1.3)
[2025-09-07 11:19] LABS: ALK PHOS 203 U/L (40-150)
[2025-09-07] MEDS: DEXAMETHASONE SODIUM PHOSPHATE 10 MG, DIPHENHYDRAMINE 50 MG in SODIUM CHLORIDE 100 ML IVPB ONE (11:31)
[2025-09-07] MEDS: ACETAMINOPHEN 325 MG TABLET (FP) PO ONE (11:32)
[2025-09-07] MEDS: FOSAPREPITANT DIMEGLUMINE 150 MG in SODIUM CHLORIDE 145 ML IVPB ONE (12:04)
[2025-09-07] MEDS: PALONOSETRON HCL 0.25 MG/5 ML VIAL IVPUSH ONE (12:33)
[2025-09-07] MEDS: PERTUZUMAB 420 MG in SODIUM CHLORIDE 250 ML IVPB ONE (12:33)
[2025-09-07] MEDS: SODIUM CHLORIDE IVPB ONE (13:24)
[2025-09-07] MEDS: TRASTUZUMAB QYYP IVPB ONE (13:24)
[2025-09-07 13:35] VITALS: RESP 20; TEMP 97.6
[2025-09-07] MEDS: CARBOPLATIN IV ONE (13:58)
[2025-09-07] MEDS: SODIUM CHLORIDE IV ONE (13:58)
[2025-09-07] MEDS: PORTA CATH FLUSH 10 ML IVPUSH PRN (15:02)
[2025-09-08 07:01] VITALS: BP 112/68; PULSE 75
== END 2025-09-07 15:09 | disposition home or self-care (01) ==
LOC: JONCCHEMO 09:21 → J7W 09:22 → JONCCHEMO 15:09
PROVIDERS: ATTEND Internal Medicine Hematology & Oncology
DX: Z51.11 Encounter for antineoplastic chemotherapy (principal); C50.919 Malignant neoplasm of unspecified site of unspecified female breast
CPT/HCPCS: 36415; 80048; 80076; 85025; 96367; 96375; 96413; 96417; J1453; J9306; Q5116